=== PATIENT | female | born 2000 | race Caucasian/White ===

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

== ENCOUNTER 2019-09-28 09:27 | Emergency (ER) | payer MEDICAID ==
[2019-09-28] MEDS ORDERED: Ondansetron 4 MG/2 ML SDV IVPUSH ONE (09:41)
[2019-09-28] MEDS ORDERED: Sodium Chloride 0.9% 2,000 ML IV ONE (09:41)
--- NOTE | 2019-09-28 10:15 | EDM.PDOC ---
ED HPI GENERAL MEDICAL PROBLEM - General Chief Complaint: Gastrointestinal Problem Stated Complaint: DEHYDRATION//VOMITTING Time Seen by Provider: 09/28/19 09:39 - History of Present Illness INITIAL COMMENTS - FREE TEXT/NARRATIVE: HISTORY AND PHYSICAL: History of present illness: Patient is a 18-year-old female was approximately 6 weeks and presents with a concern of vomiting she states it's been off and on over the last several weeks she presents now with concern of dehydration she denies abdominal pain cramping vaginal discharge bleeding or other complaints. Review of systems: As per history of present illness and below otherwise all systems reviewed and negative. Past medical history: As per history of present illness and as reviewed below otherwise noncontributory. Surgical history: As per history of present illness and as reviewed below otherwise noncontributory. Social history: No reported history of drug or alcohol abuse. Family history: As per history of present illness and as reviewed below otherwise noncontributory. Physical exam: HEENT: Atraumatic, normocephalic, pupils reactive, negative for conjunctival pallor or scleral icterus, mucous membranes dry, throat clear, neck supple, nontender, trachea midline. Lungs: Clear to auscultation, breath sounds equal bilaterally, chest nontender. Heart: S1S2, regular, negative for clicks, rubs, or JVD. Abdomen: Soft, nondistended, nontender. Negative for masses or hepatosplenomegaly. Negative for costovertebral tenderness. Pelvis: Stable nontender. Genitourinary: Deferred. Rectal: Deferred. Extremities: Atraumatic, negative for cords or calf pain. Neurovascular unremarkable. Neuro: Awake, alert, oriented. Cranial nerves II through XII unremarkable. Cerebellum unremarkable. Motor and sensory unremarkable throughout. Exam nonfocal. Diagnostics: CBC CMP Therapeutics: Saline 2 L bolus Zofran 4 mg IV Impression: #1 hyperemesis gravidarum with dehydration Definitive disposition and diagnosis as appropriate pending reevaluation and review of above. Generalized Pain Score (Numeric/FACES): 9 - Related Data Allergies Allergy/AdvReac Type Severity Reaction Status Date / Time No Known Allergies Allergy Verified 09/28/19 09:48 Home Meds: Home Meds . [No Known Home Meds] 09/28/19 [History] Past Medical History HEENT History: Reports: None Cardiovascular History: Reports: None Respiratory History: Reports: None Genitourinary History: Reports: None LUG LOADER History: Reports: None Neurological History: Reports: None Psychiatric History: Reports: Anxiety, Depression Endocrine/Metabolic History: Reports: None Hematologic History: Reports: None Dermatologic History: Reports: None - Infectious Disease History Infectious Disease History: Reports: Chicken Pox, Shingles - Past Surgical History Head Surgeries/Procedures: Reports: None HEENT Surgical History: Reports: Tonsillectomy Cardiovascular Surgical History: Reports: None GI Surgical History: Reports: None Female Surgical History: Reports: None Social & Family History - Family History Family Medical History: Noncontributory - Tobacco Use Smoking Status *Q: Current Every Day Smoker Years of Tobacco use: 3 Packs/Tins Daily: 0.2 - Caffeine Use Caffeine Use: Reports: Coffee - Recreational Drug Use Recreational Drug Use: Yes Drug Use in Last 12 Months: Yes Recreational Drug Type: Reports: Marijuana/Hashish Recreational Drug Use Frequency: Not Used In Over 2 Months ED ROS GENERAL - Review of Systems Review Of Systems: Comprehensive ROS is negative, except as noted in HPI. ED EXAM, GENERAL - Physical Exam Exam: See Below (dictation) Course - Vital Signs Last Recorded V/S: Last Vital Signs Temp 36.5 C 09/28/19 09:45 Pulse 69 09/28/19 11:11 Resp 16 09/28/19 10:25 BP 99/55 L 09/28/19 11:11 Pulse Ox 99 09/28/19 11:11 - Orders/Labs/Meds Labs: Laboratory Tests 09/28/19 09/28/19 Range/Units 10:14 10:14 WBC 8.98 (4.0-11.0) K/uL RBC 4.67 (4.30-5.90) M/uL Hgb 13.5 (12.0-16.0) g/dL Hct 39.0 (36.0-46.0) % MCV 83.5 (80.0-98.0) fL MCH 28.9 (27.0-32.0) pg MCHC 34.6 (31.0-37.0) g/dL RDW Std Deviation 39.0 (28.0-62.0) fl RDW Coeff of Chel[place] 13 (11.0-15.0) % Plt Count 345 (150-400) K/uL MPV 10.10 (7.40-12.00) fL Neut % (Auto) 70.4 (48.0-80.0) % Lymph % (Auto) 19.0 (16.0-40.0) % [place] % (Auto) 8.9 (0.0-15.0) % Eos % (Auto) 1.4 (0.0-7.0) % Baso % (Auto) 0.3 (0.0-1.5) % Neut # (Auto) 6.3 H (1.4-5.7) K/uL Lymph # (Auto) 1.7 (0.6-2.4) K/uL [place] # (Auto) 0.8 (0.0-0.8) K/uL Eos # (Auto) 0.1 (0.0-0.7) K/uL Baso # (Auto) 0.0 (0.0-0.1) K/uL Nucleated RBC % 0.0 /100WBC Nucleated RBCs # 0 K/uL Sodium 138 (136-145) mmol/L Potassium 3.7 (3.5-5.1) mmol/L Chloride 104 (98-107) mmol/L Carbon Dioxide 22.9 (21.0-32.0) mmol/L BUN 5 L (7.0-18.0) mg/dL Creatinine 0.6 (0.6-1.0) mg/dL Est Cr Clr Drug Dosing 130.23 mL/min Estimated GFR (MDRD) > 60.0 ml/min Glucose 92 (74-106) mg/dL Calcium 8.5 (8.5-10.1) mg/dL Total Bilirubin 0.3 (0.2-1.0) mg/dL AST 13 L (15-37) IU/L ALT 25 (14-63) IU/L Alkaline Phosphatase 75 (46-116) U/L Total Protein 7.2 (6.4-8.2) g/dL Albumin 3.6 (3.4-5.0) g/dL Globulin 3.6 (2.6-4.0) g/dL Albumin/Globulin Ratio 1.0 (0.9-1.6) Meds: Medications Discontinued Medications Generic Name Dose Route Start Last Admin Trade Name Freq PRN Reason Stop Dose Admin Sodium Chloride 2,000 mls @ 999 mls/hr 09/28/19 09:41 09/28/19 10:15 Normal Saline IV 09/28/19 11:41 999 mls/hr STAT ONE Administration Ondansetron HCl 4 mg 09/28/19 09:41 09/28/19 10:15 Zofran IVPUSH 09/28/19 09:42 4 mg ONETIME ONE Administration Departure - Departure Time of Disposition: 11:48 Disposition: Home, Self-Care 01 Condition: Good Clinical Impression: Hyperemesis gravidarum, Dehydration - Discharge Information Referrals: PCP,Francobtain [Primary Care Provider] - Forms: ED Department Discharge Additional Instructions: The following information is given to patients seen in the emergency department who are being discharged to home. This information is to outline your options for follow-up care. We provide all patients seen in our emergency department with a follow-up referral. The need for follow-up, as well as the timing and circumstances, are variable depending upon the specifics of your emergency department visit. If you don't have a primary care physician on staff, we will provide you with a referral. We always advise you to contact your personal physician following an emergency department visit to inform them of the circumstance of the visit and for follow-up with them and/or the need for any referrals to a consulting specialist. The emergency department will also refer you to a specialist when appropriate. This referral assures that you have the opportunity for followup care with a specialist. All of these measure are taken in an effort to provide you with optimal care, which includes your followup. Under all circumstances we always encourage you to contact your private physician who remains a resource for coordinating your care. When calling for followup care, please make the office aware that this follow-up is from your recent emergency room visit. If for any reason you are refused follow-up, please contact the [facility] emergency department at and asked to speak to the emergency department charge nurse. Push fluids as discussed Zofran as prescribed follow-up LUG LOADER he return as needed as discussed
[2019-09-28 10:57] LABS: BLOOD UREA NITROGEN,BUN 5 mg/dL (7.0-18.0); CARBON DIOXIDE,CO2 22.9 mmol/L (21.0-32.0); CHLORIDE,CL 104 mmol/L (98-107); GLUCOSE RANDOM 92 mg/dL (74-106); POTASSIUM,K 3.7 mmol/L (3.5-5.1); SODIUM,NA 138 mmol/L (136-145)
[2019-09-28 12:26] VITALS: BP 94/54; PULSE 57
== END 2019-09-28 12:26 | disposition home or self-care (01) ==
LOC: MW.ED 09:27
DX: O21.1 Hyperemesis gravidarum with metabolic disturbance (principal); O99.331 Smoking (tobacco) complicating pregnancy, first trimester; F17.210 Nicotine dependence, cigarettes, uncomplicated; Z3A.01 Less than 8 weeks gestation of pregnancy
CPT/HCPCS: 80053; 85025; 96361; 96374; 99284; J2405; J7040; 99283; J7030

== ENCOUNTER 2019-10-13 09:25 | Emergency (ER) | payer MEDICAID ==
[2019-10-13] MEDS ORDERED: Ondansetron 4 MG/2 ML SDV IVPUSH ONE (09:54)
[2019-10-13] MEDS ORDERED: Sodium Chloride 0.9% 1,000 ML IV ONE (09:54)
--- NOTE | 2019-10-13 10:21 | EDM.PDOC ---
ED HPI GENERAL MEDICAL PROBLEM - General Chief Complaint: Gastrointestinal Problem Stated Complaint: PUKING, NEED FLUIDS Time Seen by Provider: 10/13/19 09:38 Source of Information: Reports: Patient History Limitations: Reports: No Limitations - History of Present Illness INITIAL COMMENTS - FREE TEXT/NARRATIVE: Presents reporting nausea and vomiting in . She states she is between 10 and 11 weeks. She has been vomiting for the last 24 hours. She states she took one Zofran last night and still has been vomiting now today. Mild lightheadedness. 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: Neurological History: Reports: None Psychiatric History: Reports: Anxiety, Depression Endocrine/Metabolic History: Reports: None Hematologic History: Reports: None Dermatologic History: Reports: None - Infectious Disease History Infectious Disease History: Reports: Chicken Pox, Shingles - Past Surgical History Head Surgeries/Procedures: Reports: None HEENT Surgical History: Reports: Tonsillectomy Cardiovascular Surgical History: Reports: None GI Surgical History: Reports: None Female Surgical History: Reports: None Social & Family History - Family History Family Medical History: Noncontributory - Tobacco Use Smoking Status *Q: Current Every Day Smoker Years of Tobacco use: 3 Packs/Tins Daily: 0.2 - Caffeine Use Caffeine Use: Reports: Coffee - Recreational Drug Use Recreational Drug Use: No ED ROS GENERAL - Review of Systems Review Of Systems: Comprehensive ROS is negative, except as noted in HPI. ED EXAM - Physical Exam Exam: See Below General Appearance: Alert, No Apparent Distress Ears: Normal External Exam Nose: Normal Inspection Throat/Mouth: Normal Inspection Head: Atraumatic, Normocephalic Neck: Normal Inspection Respiratory/Chest: No Respiratory Distress, Lungs Clear, Normal Breath Sounds Cardiovascular: Regular Rate, Rhythm GI/Abdominal Exam: Normal Bowel Sounds, Soft, No Distention Back Exam: Normal Inspection Extremities: Normal Inspection Neurological: Alert, Oriented Psychiatric: Normal Affect, Normal Mood Skin Exam: Warm, Dry, Intact, Normal Color, No Rash Lymphatic: No Adenopathy Course - Vital Signs Last Recorded V/S: Last Vital Signs Temp 36.8 C 10/13/19 09:37 Pulse 100 10/13/19 09:37 Resp 18 10/13/19 09:37 BP 116/63 10/13/19 09:37 Pulse Ox 100 10/13/19 09:37 - Orders/Labs/Meds Orders: Active Orders 24 hr Category Date Time Status Sodium Chloride 0.9% [Normal Saline] 1,000 ml Med 10/13/19 09:54 Active IV STAT Medication Orders Sodium Chloride (Normal Saline) 1,000 mls @ 999 mls/hr IV STAT ONE Stop: 10/13/19 10:54 Last Admin: 10/13/19 10:08 Dose: 999 mls/hr Labs: Laboratory Tests 10/13/19 10/13/19 Range/Units 10:04 10:04 WBC 9.75 (4.0-11.0) K/uL RBC 4.50 (4.30-5.90) M/uL Hgb 13.2 (12.0-16.0) g/dL Hct 37.1 (36.0-46.0) % MCV 82.4 (80.0-98.0) fL MCH 29.3 (27.0-32.0) pg MCHC 35.6 (31.0-37.0) g/dL RDW Std Deviation 38.3 (28.0-62.0) fl RDW Coeff of Chel[place] 13 (11.0-15.0) % Plt Count 290 (150-400) K/uL MPV 10.40 (7.40-12.00) fL Neut % (Auto) 71.4 (48.0-80.0) % Lymph % (Auto) 18.1 (16.0-40.0) % [place] % (Auto) 9.1 (0.0-15.0) % Eos % (Auto) 1.2 (0.0-7.0) % Baso % (Auto) 0.2 (0.0-1.5) % Neut # (Auto) 7.0 H (1.4-5.7) K/uL Lymph # (Auto) 1.8 (0.6-2.4) K/uL [place] # (Auto) 0.9 H (0.0-0.8) K/uL Eos # (Auto) 0.1 (0.0-0.7) K/uL Baso # (Auto) 0.0 (0.0-0.1) K/uL Sodium 137 (136-145) mmol/L Potassium 3.7 (3.5-5.1) mmol/L Chloride 104 (98-107) mmol/L Carbon Dioxide 25.2 (21.0-32.0) mmol/L BUN 5 L (7.0-18.0) mg/dL Creatinine 0.5 L (0.6-1.0) mg/dL Est Cr Clr Drug Dosing 156.27 mL/min Estimated GFR (MDRD) > 60.0 ml/min Glucose 89 (74-106) mg/dL Calcium 8.2 L (8.5-10.1) mg/dL Meds: Medications Generic Name Dose Route Start Last Admin Trade Name Freq PRN Reason Stop Dose Admin Sodium Chloride 1,000 mls @ 999 mls/hr 10/13/19 09:54 10/13/19 10:08 Normal Saline IV 10/13/19 10:54 999 mls/hr STAT ONE Administration Discontinued Medications Generic Name Dose Route Start Last Admin Trade Name Freq PRN Reason Stop Dose Admin Ondansetron HCl 4 mg 10/13/19 09:54 10/13/19 10:08 Zofran IVPUSH 10/13/19 09:55 4 mg ONETIME ONE Administration Departure - Departure Time of Disposition: 10:46 Disposition: Home, Self-Care 01 Condition: Good Clinical Impression: Nausea and vomiting in prior to 22 weeks gestation - Discharge Information Referrals: PCP,None [Primary Care Provider] - [facility] [Outside] Simón Banks MD [Physician] - Forms: ED Department Discharge Additional Instructions: The following information is given to patients seen in the emergency department who are being discharged to home. This information is to outline your options for follow-up care. We provide all patients seen in our emergency department with a follow-up referral. The need for follow-up, as well as the timing and circumstances, are variable depending upon the specifics of your emergency department visit. If you don't have a primary care physician on staff, we will provide you with a referral. We always advise you to contact your personal physician following an emergency department visit to inform them of the circumstance of the visit and for follow-up with them and/or the need for any referrals to a consulting specialist. The emergency department will also refer you to a specialist when appropriate. This referral assures that you have the opportunity for follow-up care with a specialist. All of these measure are taken in an effort to provide you with optimal care, which includes your follow-up. Under all circumstances we always encourage you to contact your private physician who remains a resource for coordinating your care. When calling for follow-up care, please make the office aware that this follow-up is from your recent emergency room visit. If for any reason you are refused follow-up, please contact the [facility] Emergency Department at and asked to speak to the emergency department charge nurse. 1. Please establish with an OB for care. 2. Drink plenty of fluids and rest. BRAT diet (Orlin, rice, applesauce, toast ) advance as tolerated. - My Orders Last 24 Hours: My Active Orders 10/13/19 09:54 Sodium Chloride 0.9% [Normal Saline] 1,000 ml IV STAT - Assessment/Plan Last 24 Hours: My Active Orders 10/13/19 09:54 Sodium Chloride 0.9% [Normal Saline] 1,000 ml IV STAT
[2019-10-13 10:39] LABS: BLOOD UREA NITROGEN,BUN 5 mg/dL (7.0-18.0); CARBON DIOXIDE,CO2 25.2 mmol/L (21.0-32.0); CHLORIDE,CL 104 mmol/L (98-107); GLUCOSE RANDOM 89 mg/dL (74-106); POTASSIUM,K 3.7 mmol/L (3.5-5.1); SODIUM,NA 137 mmol/L (136-145)
[2019-10-13 11:07] VITALS: BP 109/62; PULSE 67
== END 2019-10-13 11:00 | disposition home or self-care (01) ==
LOC: MW.ED 09:25
DX: O21.9 Vomiting of pregnancy, unspecified (principal); O99.331 Smoking (tobacco) complicating pregnancy, first trimester; F17.210 Nicotine dependence, cigarettes, uncomplicated; Z3A.10 10 weeks gestation of pregnancy
CPT/HCPCS: 80048; 85025; 96361; 96374; 99284; J2405; J7030; 99283

== ENCOUNTER 2020-06-28 13:20 | Emergency (ER) | payer MEDICAID ==
[2020-06-28 13:33] VITALS: BP 118/82; PULSE 93
--- NOTE | 2020-06-28 13:35 | EDM.PDOC ---
ED HPI GENERAL MEDICAL PROBLEM - General Chief Complaint: Genitourinary Problem Stated Complaint: UTI; NEEDS FLUIDS Time Seen by Provider: 06/28/20 13:25 Source of Information: Reports: Patient History Limitations: Reports: No Limitations - History of Present Illness INITIAL COMMENTS - FREE TEXT/NARRATIVE: HISTORY AND PHYSICAL: History of present illness: Patient is a 19-year-old female who presents to the emergency room with complaints of dysuria, frequency and urgency. She is concerned she has a bladder infection. Does have some mild intermittent nausea without vomiting. Denies any concerns of STDs -no vaginal discharge, bleeding or lesions. Patient denies any fever, chills, headache, change in vision, syncope or near syncope. Denies any chest pain, back pain, shortness of breath or cough. Denies any abdominal pain, diarrhea, constipation or blood in urine or stool. Currently on menses. Patient has been eating and drinking appropriately. Review of systems: As per history of present illness and below otherwise all systems reviewed and negative. Past medical history: As per history of present illness and as reviewed below otherwise noncontributory. Surgical history: As per history of present illness and as reviewed below otherwise noncontributory. Social history: See social history for further information Family history: As per history of present illness and as reviewed below otherwise noncontributory. Physical exam: General: Well developed and well nourished. Alert and orientated x 3. Nontoxic in appearance and in no acute distress. Vital signs are stable and have been reviewed by me. Nursing notes were reviewed. HEENT: Atraumatic, normocephalic, pupils equal and reactive bilaterally, negative for conjunctival pallor or scleral icterus, mucous membranes moist, TMs normal bilaterally, throat clear, neck supple, nontender, trachea midline. No drooling or trismus noted. No meningeal signs. No hot potato voice noted. Lungs: Clear to auscultation, breath sounds equal bilaterally, chest nontender. Normal work of breathing, no accessory muscles used. Heart: S1S2, regular rate and rhythm without overt murmur Abdomen: Soft, nondistended, nontender. Negative for masses. Negative for costovertebral tenderness. Skin: Intact, warm, dry. No lesions or rashes noted. Hematologic: No petechiae or purpra. Mucosa appropriate color and normal nail bed color and refill. Extremities: Atraumatic, moves all extremities per self without difficulty or deficits, negative for cords or calf pain. Neurovascular unremarkable. Neuro: Awake, alert, oriented. Cranial nerves II through XII unremarkable. Cerebellum unremarkable. Motor and sensory unremarkable throughout. Exam nonfocal. Psychiatric: Mood and affect are appropriate. Normal thought process. Answering questions appropriately. Notes: Negative . Positive UTI, culture has been added. Will treat with Macrobid. Zofran and Pyridium given for comfort measures. We discussed signs and symptoms that would prompt them to return to the Emergency Department. Medication, follow up and supportive care measures were reviewed and discussed. Voices understanding and is agreeable to plan of care. Denies any further questions or concerns at this time. Diagnostics: UA, hCG U Therapeutics: Macrobid, Zofran, Pyridium Prescription: Macrobid, Pyridium Impression: UTI Plan: 1. Today labs show you have a bladder infection. Please increase your oral fluids. Take antibiotic as directed. 2. You can alternate Tylenol and ibuprofen as needed for pain management. 3. We always encourage you to follow up with your primary care provider or recommended specialist in the next few days for re-evaluation and further care/management. If your symptoms should worsen, new symptoms develop or any of the signs and symptoms we discussed should arise please return to the emergency room or call 911 (if needed). Definitive disposition and diagnosis as appropriate pending reevaluation and review of above. 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: Neurological History: Reports: None Psychiatric History: Reports: Anxiety, Depression Endocrine/Metabolic History: Reports: None Hematologic History: Reports: None Dermatologic History: Reports: None - Infectious Disease History Infectious Disease History: Reports: Chicken Pox, Shingles - Past Surgical History Head Surgeries/Procedures: Reports: None HEENT Surgical History: Reports: Tonsillectomy Cardiovascular Surgical History: Reports: None GI Surgical History: Reports: None Female Surgical History: Reports: None Social & Family History - Family History Family Medical History: Noncontributory - Caffeine Use Caffeine Use: Reports: Coffee ED ROS GENERAL - Review of Systems Review Of Systems: Comprehensive ROS is negative, except as noted in HPI. ED EXAM, RENAL/ - Physical Exam Exam: See Below (See dictation) Course - Vital Signs Last Recorded V/S: Last Vital Signs Temp 98.4 F 06/28/20 13:31 Pulse 93 06/28/20 13:31 Resp 17 06/28/20 13:31 BP 118/82 06/28/20 13:31 Pulse Ox 94 L 06/28/20 13:31 - Orders/Labs/Meds Orders: Active Orders 24 hr Category Date Time Status CULTURE URINE [RM] Stat Lab 06/28/20 13:37 Received Nitrofurantoin [place]/Macrocryst [Macrobid] Med 06/28/20 14:03 Once 100 mg PO ONETIME ONE Ondansetron [Zofran ODT] Med 06/28/20 14:03 Once 4 mg PO ONETIME ONE Phenazopyridine [Pyridium] Med 06/28/20 14:03 Once 200 mg PO ONETIME ONE Labs: Laboratory Tests 06/28/20 06/28/20 Range/Units 13:37 13:37 Urine Color YELLOW Urine Appearance CLEAR Urine pH 7.0 (5.0-8.0) Ur Specific [place] 1.025 (1.001-1.035) Urine Protein 30 H (NEGATIVE) mg/dL Urine Glucose (UA) NEGATIVE (NEGATIVE) mg/dL Urine Ketones NEGATIVE (NEGATIVE) mg/dL Urine Occult Blood MODERATE H (NEGATIVE) Urine Nitrite NEGATIVE (NEGATIVE) Urine Bilirubin NEGATIVE (NEGATIVE) Urine Urobilinogen 1.0 (<2.0) EU/dL Ur Leukocyte Esterase TRACE H (NEGATIVE) Urine RBC 0-1 (0-2/HPF) Urine WBC 8-10 (0-5/HPF) Ur Epithelial Cells OCCASIONAL (NONE-FEW) Urine Bacteria RARE (NEGATIVE) Urine Mucus LIGHT (NONE-MOD) Urine HCG, Qual NEGATIVE (NEGATIVE) Departure - Departure Time of Disposition: 14:05 Disposition: Home, Self-Care 01 Clinical Impression: UTI, Urinary tract infectious disease - Discharge Information Instructions: Urinary Tract Infection, Adult, [id number] Referrals: Vicky Berg NP [Primary Care Provider] - Forms: ED Department Discharge Additional Instructions: The following information is given to patients seen in the emergency department who are being discharged to home. This information is to outline your options for follow-up care. We provide all patients seen in our emergency department with a follow-up referral. The need for follow-up, as well as the timing and circumstances, are variable depending upon the specifics of your emergency department visit. If you don't have a primary care physician on staff, we will provide you with a referral. We always advise you to contact your personal physician following an emergency department visit to inform them of the circumstance of the visit and for follow-up with them and/or the need for any referrals to a consulting specialist. The emergency department will also refer you to a specialist when appropriate. This referral assures that you have the opportunity for follow-up care with a specialist. All of these measure are taken in an effort to provide you with optimal care, which includes your follow-up. Under all circumstances we always encourage you to contact your private physician who remains a resource for coordinating your care. When calling for follow-up care, please make the office aware that this follow-up is from your recent emergency room visit. If for any reason you are refused follow-up, please contact the [facility] Emergency Department at and asked to speak to the emergency department charge nurse. [facility] [address] [place] [address] [place] [address] Thank you for choosing the [facility] emergency department in [place] for your medical needs today. It was a pleasure caring for you. Today you were seen in the emergency department for bladder infection. 1. Today labs show you have a bladder infection. Please increase your oral fluids. Take antibiotic as directed. 2. You can alternate Tylenol and ibuprofen as needed for pain management. 3. We always encourage you to follow up with your primary care provider or recommended specialist in the next few days for re-evaluation and further care/management. If your symptoms should worsen, new symptoms develop or any of the signs and symptoms we discussed should arise please return to the emergency room or call 911 (if needed). Sepsis Event Note (ED) - Focused Exam Vital Signs: Vital Signs Temp Pulse Resp BP Pulse Ox 06/28/20 13:31 98.4 F 93 17 118/82 94 L - My Orders Last 24 Hours: My Active Orders 06/28/20 13:37 CULTURE URINE [RM] Stat 06/28/20 14:03 Nitrofurantoin [place]/Macrocryst [Macrobid] 100 mg PO ONETIME ONE Ondansetron [Zofran ODT] 4 mg PO ONETIME ONE Phenazopyridine [Pyridium] 200 mg PO ONETIME ONE - Assessment/Plan Last 24 Hours: My Active Orders 06/28/20 13:37 CULTURE URINE [RM] Stat 06/28/20 14:03 Nitrofurantoin [place]/Macrocryst [Macrobid] 100 mg PO ONETIME ONE Ondansetron [Zofran ODT] 4 mg PO ONETIME ONE Phenazopyridine [Pyridium] 200 mg PO ONETIME ONE
[2020-06-28] MEDS ORDERED: Ondansetron 4 MG Tab.DIS PO ONE (14:03)
[2020-06-28] MEDS ORDERED: Nitrofurantoin Monohydrate/Macrocrystalline 100 MG Cap PO ONE (14:03)
[2020-06-28] MEDS ORDERED: Phenazopyridine 200 MG Tab PO ONE (14:03)
== END 2020-06-28 14:21 | disposition home or self-care (01) ==
LOC: MW.ED 13:20
DX: N39.0 Urinary tract infection, site not specified (principal)
CPT/HCPCS: 81001; 81025; 87086; 99284; A9270; 99282

== ENCOUNTER 2020-10-13 07:44 | Emergency (ER) | payer MEDICAID ==
[2020-10-13] MEDS ORDERED: Clindamycin HCl 150 MG Cap PO ONE (08:07)
--- NOTE | 2020-10-13 08:14 | EDM.PDOC ---
ED HPI GENERAL MEDICAL PROBLEM - General Chief Complaint: ENT Problem Stated Complaint: ABCESSED TOOTH Time Seen by Provider: 10/13/20 08:09 Source of Information: Reports: Patient History Limitations: Reports: No Limitations - History of Present Illness INITIAL COMMENTS - FREE TEXT/NARRATIVE: Patient is a 19-year-old female who presents today for swelling to her right jaw. Patient states she has had some tooth pain in her lower jaw for the past few days when she woke up swelling was significant on her right lower jaw. Patient states she has no difficulty swallowing or breathing. Patient denies any fever chills nausea vomiting. 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: Neurological History: Reports: None Psychiatric History: Reports: Anxiety, Depression Endocrine/Metabolic History: Reports: None Hematologic History: Reports: None Dermatologic History: Reports: None - Infectious Disease History Infectious Disease History: Reports: Chicken Pox, Shingles - Past Surgical History Head Surgeries/Procedures: Reports: None HEENT Surgical History: Reports: Tonsillectomy Cardiovascular Surgical History: Reports: None GI Surgical History: Reports: None Female Surgical History: Reports: None Social & Family History - Family History Family Medical History: No Pertinent Family History - Tobacco Use Tobacco Use Status *Q: Current Every Day Tobacco User Years of Tobacco use: 10 Packs/Tins Daily: 0.5 - Caffeine Use Caffeine Use: Reports: Coffee - Recreational Drug Use Recreational Drug Use: No ED ROS ENT - Review of Systems Review Of Systems: See Below Constitutional: Reports: No Symptoms HEENT: Reports: Dental Pain Respiratory: Reports: No Symptoms Endocrine: Reports: No Symptoms GI/Abdominal: Reports: No Symptoms : Reports: No Symptoms Musculoskeletal: Reports: No Symptoms Skin: Reports: No Symptoms Neurological: Reports: No Symptoms Psychiatric: Reports: No Symptoms Hematologic/Lymphatic: Reports: No Symptoms Immunologic: Reports: No Symptoms ED EXAM, ENT - Physical Exam Exam: See Below Exam Limited By: No Limitations General Appearance: Alert, WD/WN Eye Exam: Bilateral Eye: EOMI, PERRL Ears: Normal External Exam Mouth/Throat: Dental Abcess, Dental Pain Respiratory/Chest: No Respiratory Distress, Lungs Clear Cardiovascular: Regular Rate, Rhythm GI/Abdominal: Normal Bowel Sounds Neurological: Alert, Oriented, Normal Cognition, Normal Gait Course - Vital Signs Last Recorded V/S: Last Vital Signs Temp 98.3 F 10/13/20 07:59 Pulse 109 H 10/13/20 07:59 Resp 16 10/13/20 07:59 BP 120/77 10/13/20 07:59 Pulse Ox 98 10/13/20 07:59 - Orders/Labs/Meds Meds: Medications Discontinued Medications Generic Name Dose Route Start Last Admin Trade Name Zak PRN Reason Stop Dose Admin Clindamycin HCl 300 mg 10/13/20 08:07 10/13/20 08:17 Cleocin PO 10/13/20 08:08 300 mg ONETIME ONE Administration Departure - Departure Time of Disposition: 08:20 Disposition: Home, Self-Care 01 Condition: Good Clinical Impression: Dental abscess - Discharge Information *PRESCRIPTION DRUG MONITORING PROGRAM REVIEWED*: Not Applicable *COPY OF PRESCRIPTION DRUG MONITORING REPORT IN PATIENT CLAUDE: Not Applicable Instructions: Dental Abscess, [id number] Referrals: Vicky Berg NP [Primary Care Provider] - Forms: ED Department Discharge Additional Instructions: The following information is given to patients seen in the emergency department who are being discharged to home. This information is to outline your options for follow-up care. We provide all patients seen in our emergency department with a follow-up referral. The need for follow-up, as well as the timing and circumstances, are variable depending upon the specifics of your emergency department visit. If you don't have a primary care physician on staff, we will provide you with a referral. We always advise you to contact your personal physician following an emergency department visit to inform them of the circumstance of the visit and for follow-up with them and/or the need for any referrals to a consulting specialist. The emergency department will also refer you to a specialist when appropriate. This referral assures that you have the opportunity for follow-up care with a specialist. All of these measure are taken in an effort to provide you with optimal care, which includes your follow-up. Under all circumstances we always encourage you to contact your private physician who remains a resource for coordinating your care. When calling for follow-up care, please make the office aware that this follow-up is from your r ecent emergency room visit. If for any reason you are refused follow-up, please contact the [facility] Emergency Department at and asked to speak to the emergency department charge nurse. Please follow up with your primary care physician. If you do not have a primary care physician, see below: [facility] [address] [place] [id number] [facility] [address] [place] [id number] Follow-up with your dentist today. In the meantime please take your antibiotics and pain meds as needed. If you start having difficulty swallowing or breathing or pain in your neck please return to the ED. Sepsis Event Note (ED) - Evaluation Sepsis Screening Result: No Definite Risk - Focused Exam Vital Signs: Vital Signs Temp Pulse Resp BP Pulse Ox 10/13/20 07:59 98.3 F 109 H 16 120/77 98 - Assessment/Plan Plan: Patient is a 19-year-old female presents today for right jaw pain. Patient has a swollen right jaw likely related to her dental abscess. Patient will be started on antibiotics. Patient drove here and cannot take any heavy narcotics so will be discharged home with narcotics. Patient also states she can see her dentist today. Plan is to discharge with antibiotics and have patient follow-up with dental today.
[2020-10-13 08:41] VITALS: BP 111/72; PULSE 91
== END 2020-10-13 08:38 | disposition home or self-care (01) ==
LOC: MW.ED 07:44
DX: K04.7 Periapical abscess without sinus (principal); F17.210 Nicotine dependence, cigarettes, uncomplicated
CPT/HCPCS: 99282; A9270

== ENCOUNTER 2021-04-14 06:32 | Emergency (ER) | payer MEDICAID ==
[2021-04-14] MEDS ORDERED: Acetaminophen 325 MG Tab PO ONE (06:51)
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
[2021-04-14] MEDS ORDERED: Ketorolac 30 MG/ML SDV IVPUSH ONE (08:13)
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
[2021-04-14 08:43] VITALS: BP 149/70; PULSE 71
== END 2021-04-14 08:43 | disposition home or self-care (01) ==
LOC: MW.ED 06:32
DX: M25.571 Pain in right ankle and joints of right foot (principal); M25.511 Pain in right shoulder; R07.81 Pleurodynia; R51.9 Headache, unspecified; Y04.0XXA Assault by unarmed brawl or fight, initial encounter
CPT/HCPCS: 36415; 71046; 73030; 73610; 73620; 84703; 99284; A9270

== ENCOUNTER 2022-06-02 15:36 | Emergency (ER) | payer BC, MEDICAID ==
[2022-06-02 16:37] VITALS: BP 112/65; PULSE 92
[2022-06-02] MEDS ORDERED: Ibuprofen 400 MG Tab PO ONE (17:29)
[2022-06-02] MEDS ORDERED: Acetaminophen 325 MG Tab PO ONE (17:29)
== END 2022-06-02 19:03 | disposition left against medical advice (07) ==
LOC: MW.ED 15:36
DX: R07.81 Pleurodynia (principal); F17.210 Nicotine dependence, cigarettes, uncomplicated; Z79.899 Other long term (current) drug therapy; Y04.0XXA Assault by unarmed brawl or fight, initial encounter
CPT/HCPCS: 70450; 71046; 99284; A9270; 99283

== ENCOUNTER 2022-07-15 12:06 | Emergency (ER) | payer BC, MEDICAID ==
[2022-07-15 13:12] VITALS: BP 153/75; PULSE 94
== END 2022-07-15 13:11 | disposition home or self-care (01) ==
LOC: MW.ED 12:06
DX: L03.115 Cellulitis of right lower limb (principal)
CPT/HCPCS: 99283

== ENCOUNTER 2022-07-16 10:54 | Emergency (ER) | payer MEDICAID ==
[2022-07-16] MEDS ORDERED: Clindamycin Phosphate in D5W 600 MG in Premix Bag 1 BAG IV ONE ×2 (12:10)
[2022-07-16] MEDS ORDERED: Lidocaine 1% 5 ML VIAL INJECT ONE (12:11)
[2022-07-16 13:04] LABS: POTASSIUM,K 4.8 mmol/L (3.5-5.1)
[2022-07-16 16:11] VITALS: BP 112/68; PULSE 98
== END 2022-07-16 13:42 | disposition home or self-care (01) ==
LOC: MW.ED 10:54
DX: L03.115 Cellulitis of right lower limb (principal); L02.415 Cutaneous abscess of right lower limb
CPT/HCPCS: 10060; 36415; 80048; 85025; 87070; 87205; 96365; 99283; J3490; 87077; 87186

== ENCOUNTER 2022-11-02 13:58 | Emergency (ER) | payer MEDICAID ==
[2022-11-02 14:51] VITALS: BP 129/80; PULSE 93
== END 2022-11-02 15:03 ==
LOC: MW.ED 13:58
DX: Z02.89 Encounter for other administrative examinations (principal)
CPT/HCPCS: 99282

== ENCOUNTER 2023-01-16 15:19 | Emergency (ER) | payer MEDICAID | END 2023-01-16 17:30 | disposition left against medical advice (07) | LOC: MW.ED 15:19 | DX: Z53.21 Procedure and treatment not carried out due to patient leaving prior to being seen by health care provider (principal) ==

== ENCOUNTER 2023-03-07 22:53 | Emergency (ER) | payer MEDICAID ==
[2023-03-07 23:41] VITALS: BP 138/94; PULSE 83
== END 2023-03-07 23:56 | disposition left against medical advice (07) ==
LOC: MW.ED 22:53
DX: Z02.89 Encounter for other administrative examinations (principal)
CPT/HCPCS: 99282

== ENCOUNTER 2023-03-11 20:51 | Emergency (ER) | payer MEDICAID | END 2023-03-11 21:00 | LOC: MW.ED 20:51 | DX: Z53.21 Procedure and treatment not carried out due to patient leaving prior to being seen by health care provider (principal) ==

== ENCOUNTER 2023-04-18 14:21 | Emergency (ER) | payer MEDICAID | END 2023-04-18 14:36 | disposition left against medical advice (07) | LOC: MW.ED 14:21 | DX: Z53.21 Procedure and treatment not carried out due to patient leaving prior to being seen by health care provider (principal) ==

== ENCOUNTER 2025-05-12 10:53 | Inpatient (IN) | payer MEDICAID ==
[2025-05-12] MEDS: Ondansetron 4 MG/2 ML SDV IVPUSH ONE (11:57)
[2025-05-12 12:11] LABS: BASOPHILS ABSOLUTE AUTO 0.07 K/uL (0.00-0.20); BASOPHILS PERCENT AUTO 0.6 % (0.0-1.0); EOSINOPHILS ABSOLUTE AUTO 0.20 K/uL (0.00-0.45); EOSINOPHILS PERCENT AUTO 1.7 % (0.0-6.0); IMMATURE GRAN ABSOLUTE AUTO 0.13 K/uL (0.00-0.05); IMMATURE GRAN PERCENT AUTO 1.1 % (0.0-0.4); LYMPHOCYTES ABSOLUTE AUTO 1.87 K/uL (1.00-4.80); LYMPHOCYTES PERCENT AUTO 15.8 % (24.0-44.0); MEAN PLATELET VOLUME 10.5 fL (9.4-12.3); MONOCYTES ABSOLUTE AUTO 1.02 K/uL (0.00-0.80); MONOCYTES PERCENT AUTO 8.6 % (0.0-8.0); NEUTROPHILS ABSOLUTE AUTO 8.51 K/uL (1.80-7.70); NEUTROPHILS PERCENT AUTO 72.2 % (41.0-71.0); NRBC ABSOLUTE 0.00 K/uL (0.00-0.02); NRBC PERCENT 0.0 /100WBC (0.0-0.2); PLATELET COUNT,PLT 283 K/uL (150-400); RED BLOOD CELL COUNT 4.19 M/uL (4.10-5.30); WHITE BLOOD CELL COUNT,WBC 11.80 K/uL (3.9-11.3)
[2025-05-12 13:59] LABS: CREATININE,URINE RAND 60.4 mg/dL; PROTEIN CREATININE RATIO,URINE 0.2; PROTEIN,URINE RANDOM 14.5 mg/dL (<11.9)
[2025-05-12 14:39] LABS: BLOOD UREA NITROGEN,BUN 6.0 mg/dL (7.0-18.0); CARBON DIOXIDE,CO2 25.8 mmol/L (21.0-32.0); CHLORIDE,CL 105.0 mmol/L (98-107); CREATININE 0.6 mg/dL (0.6-1.0); EST CRCL DRUG DOSING (CG) 134.18 mL/min; GLUCOSE RANDOM 89.0 mg/dL (74-106); POTASSIUM,K 3.9 mmol/L (3.5-5.1); SODIUM,NA 138.0 mmol/L (136-145)
[2025-05-12 14:40] LABS: ESTIMATED GFR 128.0 mL/min (>60)
[2025-05-12 14:54] LABS: A/G RATIO 0.6 (0.9-1.6); ALANINE AMINOTRANSFERASE,ALT 27.0 IU/L (14-63); ASPARTATE AMNIOTRANSFERASE,AST 27.0 IU/L (15-37); BILIRUBIN TOTAL 0.3 mg/dL (0.2-1.0); PROTEIN TOTAL,TP 6.4 g/dL (6.4-8.2)
[2025-05-12] MEDS ORDERED: Water For Irrigation,Sterile 1,000 ML Container IRR PRN (15:08)
[2025-05-12] MEDS ORDERED: Ondansetron 4 MG/2 ML SDV IVPUSH PRN (15:08)
[2025-05-12] MEDS ORDERED: Carboprost Tromethamine 250 MCG/1 mL Vial IM PRN (15:08)
[2025-05-12] MEDS ORDERED: Butorphanol 1 MG/ML SDV IVPUSH PRN (15:08)
[2025-05-12] MEDS ORDERED: Sodium Chloride 0.9% 10 ML Syringe FLUSH PRN (15:08)
[2025-05-12] MEDS ORDERED: Sodium Chloride 0.9% 2.5 ML Syringe FLUSH PRN (15:08)
[2025-05-12] MEDS: Lactated Ringers 1,000 ML IV SCH (15:46)
[2025-05-12] MEDS: Misoprostol 25 MCG (1/4 of 100 MCG) Tab PO PRN (15:48)
[2025-05-12] MEDS: Misoprostol 25 MCG (1/4 of 100 MCG) Tab VAG PRN (15:49)
[2025-05-12] MEDS: Terbutaline 1 MG/ML SDV SUBCUT PRN (16:18)
[2025-05-12] MEDS ORDERED: ePHEDrine 50 MG/ML SDV IVPUSH PRN (16:42)
[2025-05-12] MEDS ORDERED: dexmedeTOMIDine HCl 200 MCG/2 ML SDV EPIDUR SCH (16:45)
[2025-05-12] MEDS: Ropivacaine HCl/PF 400 MG in Premix Bag 1 BAG EPIDUR SCH (19:50)
[2025-05-12] MEDS: Oxytocin/0.9 % Sodium Chloride 30 UNIT/500 ML BAG IV SCH ×2 (21:25→23:35)
[2025-05-12] MEDS ORDERED: Aluminum Hydroxide/Magnesium Hydroxide/Simethicone Susp 30 ML Cup PO PRN (23:48)
[2025-05-12] MEDS ORDERED: Lanolin 100% Cream 7 GM Tube TOP PRN (23:48)
[2025-05-13 00:42] LABS: PH,UMBILICAL ARTERIAL 7.39 (7.18-7.38); PH,UMBILICAL VENOUS 7.35 (7.25-7.45)
[2025-05-13] MEDS: Witch Hazel Medicated Pads 40/Jar TOP PRN (03:20)
[2025-05-13] MEDS: Benzocaine/Menthol 20%-0.5% Spray 78 GM Cannister TOP PRN (03:20)
[2025-05-13 05:59] LABS: MEAN PLATELET VOLUME 10.4 fL (9.4-12.3); NRBC ABSOLUTE 0.00 K/uL (0.00-0.02); NRBC PERCENT 0.0 /100WBC (0.0-0.2); PLATELET COUNT,PLT 263 K/uL (150-400); RED BLOOD CELL COUNT 4.03 M/uL (4.10-5.30); WHITE BLOOD CELL COUNT,WBC 18.68 K/uL (3.9-11.3)
[2025-05-13 06:34] LABS: A/G RATIO 0.6 (0.9-1.6); ALANINE AMINOTRANSFERASE,ALT 20.0 IU/L (14-63); ASPARTATE AMNIOTRANSFERASE,AST 23.0 IU/L (15-37); BILIRUBIN TOTAL 0.5 mg/dL (0.2-1.0); BLOOD UREA NITROGEN,BUN 8.0 mg/dL (7.0-18.0); CARBON DIOXIDE,CO2 23.2 mmol/L (21.0-32.0); CHLORIDE,CL 104.0 mmol/L (98-107); CREATININE 0.6 mg/dL (0.6-1.0); EST CRCL DRUG DOSING (CG) 134.18 mL/min; GLUCOSE RANDOM 90.0 mg/dL (74-106); POTASSIUM,K 3.5 mmol/L (3.5-5.1); PROTEIN TOTAL,TP 5.7 g/dL (6.4-8.2); SODIUM,NA 139.0 mmol/L (136-145)
[2025-05-13 06:46] LABS: ESTIMATED GFR 128.0 mL/min (>60)
[2025-05-14 11:53] VITALS: BP 112/79; PULSE 70
[2025-05-14] MEDS: Measles, Mumps & Rubella Vaccine 0.5 ML SDV SUBCUT ONE (12:32)
== END 2025-05-14 12:49 | disposition home or self-care (01) | DRG 806 ==
LOC: MW.OBCHECK 10:53 → MW.OB 10:54 → MW.OBCHECK 16:08 → OBSVTOIN 23:35 → MW.OB 05-13 01:55
PROVIDERS: ADMIT Obstetrics & Gynecology; ATTEND Obstetrics & Gynecology
PROC: 10E0XZZ Delivery of Products of Conception, External Approach (ICD-10-PCS; principal; 2025-05-12)
PROC: 10907ZC Drainage of Amniotic Fluid, Therapeutic from Products of Conception, Via Natural or Artificial Opening (ICD-10-PCS; 2025-05-12)
PROC: 3E0DXGC Introduction of Other Therapeutic Substance into Mouth and Pharynx, External Approach (ICD-10-PCS; 2025-05-12)
PROC: 4A1HXCZ Monitoring of Products of Conception, Cardiac Rate, External Approach (ICD-10-PCS; 2025-05-12)
PROC: 3E0R3BZ Introduction of Anesthetic Agent into Spinal Canal, Percutaneous Approach (ICD-10-PCS; 2025-05-12)
PROC: 00HU33Z Insertion of Infusion Device into Spinal Canal, Percutaneous Approach (ICD-10-PCS; 2025-05-12)
DX: O13.4 Gestational [pregnancy-induced] hypertension without significant proteinuria, complicating childbirth (principal); Z3A.39 39 weeks gestation of pregnancy; Z37.0 Single live birth; O98.52 Other viral diseases complicating childbirth; O69.2XX0 Labor and delivery complicated by other cord entanglement, with compression, not applicable or unspecified; O76 Abnormality in fetal heart rate and rhythm complicating labor and delivery; B00.9 Herpesviral infection, unspecified
CPT/HCPCS: 01967; 36415; 51702; 59025; 59409; 76815; 76815-26; 76819; 76819-26; 80053; 82570; 82803; 84156; 85025; 85027; 86592; 86850; 86900; 86901; 90471; 90707; A9270-GY; J2405; J2590; J2795; J3105; J7120